=== PATIENT | female | born 1970 | race Two or more races ===

== ENCOUNTER 2022-02-09 06:00 | Day surgery (SDC) | payer OTHER | END 2022-02-09 09:50 | disposition home or self-care (01) | LOC: AMB-ENDOS 06:00 | PROVIDERS: ATTEND Surgery | DX: K21.9 Gastro-esophageal reflux disease without esophagitis (principal); K44.9 Diaphragmatic hernia without obstruction or gangrene; E66.01 Morbid (severe) obesity due to excess calories; I10 Essential (primary) hypertension ==